=== PATIENT | female | born 1940 | race Caucasian/White ===

== ENCOUNTER → 2018-02-01 | Outpatient (CLI) | payer OTHER ==
[~2018-02-01] MED LIST: ALEN70 PO; AMOCLA875 PO; ASPI81CH PO; BUPR75 PO; CIPR500 PO; DOCU100 PO; ESTRTP VAG; Enulose10 GM/15 M PO; GABA100 PO; HYDACE5 PO; HYDMOR2 PO; KRILL OIL500 MG PO; LISI5 PO; LORA.5 PO; METO10 PO; Milk Of Ma800 MG/5 M PO; Miralax17 GM PO; OXYACE5T PO; Omeprazole20 M1 PO; PERIDEX15 ML MM; PHENA100 PO; PRAV20 PO; SOLI5 PO; SPIRIVA RESPIMAT4 G1 IH; TRAZ100 PO; VITAMIN D5000 UNI1 PO; Zanaflex4 MG PO; Zofran Odt4 MG SL
== END ==
LOC: LAB SHORT 12:35 → LAB EV 12:35
DX: N39.0 Urinary tract infection, site not specified (principal)
CPT/HCPCS: 87077; 87086; 87186

== ENCOUNTER 2018-02-14 13:54 | Inpatient (IN) | payer OTHER ==
[~2018-02-14] VITALS: Ht 162.6 cm; Wt 58.7 kg
[~2018-02-14 13:54] MED LIST changes: -GABA300 PO; -HYDCHL12.5 PO; -HYDR1TAB94 PO; -LIDO700A20 TOP; -TRIM100 PO
[2018-02-14] MEDS ORDERED: HYDCHL12.5 PO ×2 (15:21)
[2018-02-14] MEDS ORDERED: TRIM100 PO (15:23)
[2018-02-15 05:25] LABS: BASOPHILS ABSOLUTE AUTO 0.02 K/mm3 (0.00-0.23); BASOPHILS PERCENT AUTO 0 % (0-2); EOSINOPHILS ABSOLUTE AUTO 0.61 K/mm3 (0.00-0.68); EOSINOPHILS PERCENT AUTO 6 % (0-6); Hematocrit 39.1 % (33.0-51.0); Hemoglobin 12.8 g/dL (11.5-16.0); IMMATURE GRAN ABSOLUTE AUTO 0.04 K/mm3 (0.00-0.10); IMMATURE GRAN PERCENT AUTO 0 % (0-1); LYMPHOCYTES ABSOLUTE AUTO 0.99 K/mm3 (0.84-5.20); LYMPHOCYTES PERCENT AUTO 10 % (21-46); MONOCYTES ABSOLUTE AUTO 0.59 K/mm3 (0.16-1.47); MONOCYTES PERCENT AUTO 6 % (4-13); Mean Corpuscular HGB 28.2 pg (26.0-34.0); Mean Corpuscular HGB Conc 32.7 g/dL (31.5-36.5); Mean Corpuscular Volume 86 fL (80-100); Mean Platelet Volume 10.1 fL (9.1-12.4); NEUTROPHILS ABSOLUTE AUTO 7.96 K/mm3 (1.96-9.15); NEUTROPHILS PERCENT AUTO 78 % (41-73); Platelet Count 337 K/mm3 (150-400); RDW Coefficient Variation 12.8 % (11.7-14.2); RDW Standard Deviation 40.2 fL (35.1-46.3); Red Blood Cell Count 4.54 M/mm3 (3.80-5.20); White Blood Cell Count 10.21 K/mm3 (4.00-11.30)
[2018-02-15 05:52] LABS: Alanine Aminotransfer (ALT/SGP 10 U/L (12-78); Albumin, Blood 2.4 g/dL (3.4-5.0); Albumin/Globulin Ratio 0.6 (0.8-1.8); Alk Phos 107 U/L (50-136); Anion Gap 7 mmol/L (6-16); Aspartate Aminotrans (AST/SGOT 8 U/L (12-37); Bilirubin, Total 0.4 mg/dL (0.1-1.0); Blood Urea Nitrogen 14 mg/dL (8-24); Bun/Creatinine Ratio 20.2 (12.0-20.0); CO2, Blood 28 mmol/L (21-32); Calcium, Blood 8.1 mg/dL (8.5-10.1); Chloride, Blood 108 mmol/L (98-108); Creatinine, Blood 0.69 mg/dL (0.40-1.00); Globulin, Blood 4.1 g/dL (2.2-4.0); Glomerular Filtration Rate >60 (60-); Glucose, Blood 104 mg/dL (70-99); Potassium, Blood 3.7 mmol/L (3.5-5.5); Sodium, Blood 143 mmol/L (136-145); Total Protein, Blood 6.5 g/dL (6.4-8.2)
[2018-02-20] MEDS ORDERED: GABA300 PO ×2 (11:01)
[2018-02-20] MEDS ORDERED: HYDR1TAB94 PO ×2 (11:02)
[2018-02-20] MEDS ORDERED: LIDO700A20 TOP ×2 (11:03)
== END 2018-02-20 15:24 | disposition home or self-care (01) | DRG 872 ==
LOC: ER 13:54 → MEDS 16:16 → ENPENDDIS 02-20 10:19 → MEDS 02-20 15:24
PROVIDERS: Student in an Organized Health Care Education/Training Program
DX: A41.9 Sepsis, unspecified organism (principal); N39.0 Urinary tract infection, site not specified; M84.48XA Pathological fracture, other site, initial encounter for fracture; M81.0 Age-related osteoporosis without current pathological fracture; R65.20 Severe sepsis without septic shock; R21 Rash and other nonspecific skin eruption; M51.16 Intervertebral disc disorders with radiculopathy, lumbar region; M48.061 Spinal stenosis, lumbar region without neurogenic claudication; I10 Essential (primary) hypertension; J44.9 Chronic obstructive pulmonary disease, unspecified; G89.29 Other chronic pain; R32 Unspecified urinary incontinence; F17.210 Nicotine dependence, cigarettes, uncomplicated; Z79.82 Long term (current) use of aspirin; Z79.899 Other long term (current) drug therapy; W18.39XA Other fall on same level, initial encounter; Y92.230 Patient room in hospital as the place of occurrence of the external cause
CPT/HCPCS: 36415; 72148; 80053; 83605; 85025; 87040; 87086; 94640; 94760; 96361; 96374; 97110; 97116; 97162; 97166; 97530; 97535; 99285-25; G8978; G8979; G8987; G8988; J0696; J1650; J2405; J3010; J7030

== ENCOUNTER → 2018-02-14 | Outpatient (CLI) | payer OTHER ==
[~2018-02-14] MED LIST changes: +GABA300 PO; +HYDCHL12.5 PO; +HYDR1TAB94 PO; +LIDO700A20 TOP; +TRIM100 PO
[2018-02-14 13:11] LABS: BASOPHILS ABSOLUTE AUTO 0.03 K/mm3 (0.00-0.23); BASOPHILS PERCENT AUTO 0 % (0-2); EOSINOPHILS ABSOLUTE AUTO 0.37 K/mm3 (0.00-0.68); EOSINOPHILS PERCENT AUTO 2 % (0-6); Hematocrit 46.6 % (33.0-51.0); Hemoglobin 15.3 g/dL (11.5-16.0); IMMATURE GRAN ABSOLUTE AUTO 0.08 K/mm3 (0.00-0.10); IMMATURE GRAN PERCENT AUTO 1 % (0-1); LYMPHOCYTES ABSOLUTE AUTO 0.42 K/mm3 (0.84-5.20); LYMPHOCYTES PERCENT AUTO 3 % (21-46); MONOCYTES ABSOLUTE AUTO 0.44 K/mm3 (0.16-1.47); MONOCYTES PERCENT AUTO 3 % (4-13); Mean Corpuscular HGB 28.5 pg (26.0-34.0); Mean Corpuscular HGB Conc 32.8 g/dL (31.5-36.5); Mean Corpuscular Volume 87 fL (80-100); Mean Platelet Volume 9.6 fL (9.1-12.4); NEUTROPHILS ABSOLUTE AUTO 14.83 K/mm3 (1.96-9.15); NEUTROPHILS PERCENT AUTO 92 % (41-73); Platelet Count 416 K/mm3 (150-400); RDW Coefficient Variation 12.9 % (11.7-14.2); RDW Standard Deviation 40.4 fL (35.1-46.3); Red Blood Cell Count 5.37 M/mm3 (3.80-5.20); White Blood Cell Count 16.17 K/mm3 (4.00-11.30)
[2018-02-14 13:27] LABS: Alanine Aminotransfer (ALT/SGP 17 U/L (12-78); Albumin, Blood 3.4 g/dL (3.4-5.0); Albumin/Globulin Ratio 0.6 (0.8-1.8); Alk Phos 162 U/L (40-126); Anion Gap 8 mmol/L (6-16); Aspartate Aminotrans (AST/SGOT 17 U/L (12-37); Bilirubin, Total 0.5 mg/dL (0.1-1.0); Blood Urea Nitrogen 12 mg/dL (8-24); Bun/Creatinine Ratio 13.6 (12.0-20.0); CO2, Blood 30 mmol/L (21-32); Calcium, Blood 9.4 mg/dL (8.5-10.1); Chloride, Blood 97 mmol/L (98-108); Creatinine, Blood 0.88 mg/dL (0.40-1.00); Globulin, Blood 5.5 g/dL (2.2-4.0); Glomerular Filtration Rate >60 (60-); Glucose, Blood 169 mg/dL (70-99); Potassium, Blood 3.7 mmol/L (3.5-5.5); Sodium, Blood 135 mmol/L (136-145); Total Protein, Blood 8.9 g/dL (6.4-8.2)
== END | disposition home or self-care (01) ==
LOC: LAB EV 12:55 → LAB SHORT 12:55
PROVIDERS: Physician Assistant
DX: R21 Rash and other nonspecific skin eruption (principal)
CPT/HCPCS: 80053; 83605; 85025; 87040

== ENCOUNTER 2018-08-11 08:31 | Inpatient (IN) | payer OTHER ==
[~2018-08-11] VITALS: Ht 157.5 cm; Wt 55.6 kg
[~2018-08-11 08:31] MED LIST changes: +GABA300 PO; +HYDCHL12.5 PO; +HYDR1TAB94 PO; +LIDO700A20 TOP; +TRIM100 PO
[2018-08-11] MEDS ORDERED: OXYC5 PO (10:20)
[2018-08-11 11:55] LABS: BASOPHILS ABSOLUTE AUTO 0.05 K/mm3 (0.00-0.23); BASOPHILS PERCENT AUTO 1 % (0-2); EOSINOPHILS ABSOLUTE AUTO 0.11 K/mm3 (0.00-0.68); EOSINOPHILS PERCENT AUTO 1 % (0-6); Hematocrit 37.9 % (33.0-51.0); Hemoglobin 12.6 g/dL (11.5-16.0); IMMATURE GRAN ABSOLUTE AUTO 0.03 K/mm3 (0.00-0.10); IMMATURE GRAN PERCENT AUTO 0 % (0-1); LYMPHOCYTES ABSOLUTE AUTO 2.18 K/mm3 (0.84-5.20); LYMPHOCYTES PERCENT AUTO 21 % (21-46); MONOCYTES ABSOLUTE AUTO 0.91 K/mm3 (0.16-1.47); MONOCYTES PERCENT AUTO 9 % (4-13); Mean Corpuscular HGB 29.6 pg (26.0-34.0); Mean Corpuscular HGB Conc 33.2 g/dL (31.5-36.5); Mean Corpuscular Volume 89 fL (80-100); Mean Platelet Volume 9.3 fL (9.1-12.4); NEUTROPHILS ABSOLUTE AUTO 6.93 K/mm3 (1.96-9.15); NEUTROPHILS PERCENT AUTO 68 % (41-73); Platelet Count 418 K/mm3 (150-400); RDW Coefficient Variation 12.5 % (11.7-14.2); Red Blood Cell Count 4.26 M/mm3 (3.80-5.20); White Blood Cell Count 10.21 K/mm3 (4.00-11.30)
[2018-08-11 12:05] LABS: Source, Urine Clean Catch
[2018-08-11 12:08] LABS: Bilirubin, Urine Neg (Neg); Blood, Urine 3+ (Neg); Glucose Qualitative, Urine Neg (Neg); Ketones, Urine Neg (Neg); Leukocyte Esterase, Urine Neg (Neg); Nitrite, Urine Neg (Neg); Protein, Urine 1+ (Neg); Urobilinogen, Urine NORM (Normal); pH, Urine 6.5 (5.0-8.0)
[2018-08-11 12:11] LABS: Appearance, Urine Clear (Clear); Color, Urine Yellow (P-Yellow)
[2018-08-11 12:13] LABS: Alanine Aminotransfer (ALT/SGP 37 U/L (12-78); Albumin, Blood 3.1 g/dL (3.4-5.0); Albumin/Globulin Ratio 0.7 (0.8-1.8); Alk Phos 85 U/L (50-136); Anion Gap 9 mmol/L (6-16); Aspartate Aminotrans (AST/SGOT 15 U/L (12-37); Bilirubin, Total 0.5 mg/dL (0.1-1.0); Blood Urea Nitrogen 14 mg/dL (8-24); Bun/Creatinine Ratio 23.9 (12.0-20.0); CO2, Blood 25 mmol/L (21-32); Calcium, Blood 8.4 mg/dL (8.5-10.1); Chloride, Blood 105 mmol/L (98-108); Creatinine, Blood 0.59 mg/dL (0.40-1.00); Globulin, Blood 4.4 g/dL (2.2-4.0); Glomerular Filtration Rate >60 (60-); Glucose, Blood 102 mg/dL (70-99); Potassium, Blood 3.2 mmol/L (3.5-5.5); Sodium, Blood 139 mmol/L (136-145); Total Protein, Blood 7.5 g/dL (6.4-8.2)
[2018-08-11 12:14] LABS: Bacteria Not Seen /hpf
[2018-08-11 12:15] LABS: Calcium Oxalate Crystals Few /hpf; White Blood Cells, Urine Rare /hpf (0-5)
[2018-08-11 12:16] LABS: Squamous Epithelial Cells Rare /hpf (Few)
--- NOTE | 2018-08-11 16:07 | NUR ---
DR ROBERT HERE RECENTLY REPORTS TALKING WITH DR MÉNDEZ, REPORTS TO GIVE ABX. REPORTS PT MAY EAT AND TO HAVE PT NPO AFTER MIDNIGHT. PT R FOOT SLIGHTLY PINKER THAN LEFT. PT DENIES CP/SOB, NAUSEA. REPORTS N/T NORMAL FOR PT. PT REPORTS HX OF MURMUR. BT+X4. REPORTS VOIDING WITHOUT DIFF. PT A/O. PPX4. PT REPORTS RECENT BACK SURGERY. OWEN INTACT. PT REQ TO HAVE DRESSING CHANGED TODAY.
--- NOTE | 2018-08-11 18:24 | NUR ---
DRESSING RECENTLY CHANGED TO LOWER BACK.
[2018-08-12 05:35] LABS: BASOPHILS ABSOLUTE AUTO 0.04 K/mm3 (0.00-0.23); BASOPHILS PERCENT AUTO 1 % (0-2); EOSINOPHILS ABSOLUTE AUTO 0.18 K/mm3 (0.00-0.68); EOSINOPHILS PERCENT AUTO 3 % (0-6); Hematocrit 34.2 % (33.0-51.0); IMMATURE GRAN ABSOLUTE AUTO 0.02 K/mm3 (0.00-0.10); IMMATURE GRAN PERCENT AUTO 0 % (0-1); LYMPHOCYTES ABSOLUTE AUTO 1.74 K/mm3 (0.84-5.20); LYMPHOCYTES PERCENT AUTO 28 % (21-46); MONOCYTES ABSOLUTE AUTO 0.78 K/mm3 (0.16-1.47); MONOCYTES PERCENT AUTO 13 % (4-13); Mean Corpuscular HGB 29.2 pg (26.0-34.0); Mean Corpuscular HGB Conc 32.2 g/dL (31.5-36.5); Mean Corpuscular Volume 91 fL (80-100); Mean Platelet Volume 9.3 fL (9.1-12.4); NEUTROPHILS PERCENT AUTO 56 % (41-73); Platelet Count 366 K/mm3 (150-400); RDW Coefficient Variation 12.8 % (11.7-14.2); RDW Standard Deviation 42.3 fL (35.1-46.3); Red Blood Cell Count 3.77 M/mm3 (3.80-5.20); White Blood Cell Count 6.26 K/mm3 (4.00-11.30)
[2018-08-12 05:48] LABS: International Normalized Ratio 0.96; Prothrombin Time Results 9.9 Sec (9.7-11.5)
[2018-08-12 06:02] LABS: Alanine Aminotransfer (ALT/SGP 31 U/L (12-78); Albumin, Blood 2.4 g/dL (3.4-5.0); Albumin/Globulin Ratio 0.6 (0.8-1.8); Alk Phos 77 U/L (50-136); Anion Gap 5 mmol/L (6-16); Aspartate Aminotrans (AST/SGOT 16 U/L (12-37); Bilirubin, Total 0.7 mg/dL (0.1-1.0); Blood Urea Nitrogen 15 mg/dL (8-24); Bun/Creatinine Ratio 23.5 (12.0-20.0); CO2, Blood 28 mmol/L (21-32); Calcium, Blood 8.3 mg/dL (8.5-10.1); Chloride, Blood 109 mmol/L (98-108); Creatinine, Blood 0.64 mg/dL (0.40-1.00); Globulin, Blood 3.8 g/dL (2.2-4.0); Glomerular Filtration Rate >60 (60-); Glucose, Blood 115 mg/dL (70-99); Potassium, Blood 3.9 mmol/L (3.5-5.5); Sodium, Blood 142 mmol/L (136-145); Total Protein, Blood 6.2 g/dL (6.4-8.2)
--- NOTE | 2018-08-12 06:30 | NUR ---
SHIFT SUMMARY: PT HAS DONE WELL THIS SHIFT. STATES PAIN IS TOLERABLE AND REFUSES PAIN MEDICATION. ONE SBA TO BATHROOM. PT NPO FOR PLANNED I&D THIS MORNING. FLUIDS AND ABX INFUSING PER EMAR. NO CONCERNS AT THIS TIME. CALL LIGHT IN REACH.
--- NOTE | 2018-08-12 16:17 | NUR ---
SHIFT SUMMARY PT HAS DONE WELL THIS SHIFT. MEDICATED FOR PAIN ONCE WITH 5MG ROXICODONE FOR LBP AT SURGICAL SITE FROM RECENT BACK SURGERY. IV ABX PER EMAR. TOLERATING REGULAR DIET WITH NO N/V. SBA TO BATHROOM-DENIES WEAKNESS OR DIZZINESS.
--- NOTE | 2018-08-13 04:44 | NUR ---
SHIFT SUMMARY: PT HAS DONE WELL THIS SHIFT. NO ACUTE CHANGES. DENIES PAIN AND REFUSES 2100 GABAPENTIN. REPORTS NO BM FOR THE PAST 9 DAYS. GIVEN MOM, COLACE AND RECTAL SUPPOSITORY. REPORTS SML HARD BM HOUR AFTER SUPPOSITORY. PASSING GAS AND VOIDING WELL. DECREASE IN SWELLING ON R ANKLE. PLAN IS FOR PT TO DISCHARGE TODAY.
[2018-08-13 06:48] LABS: BASOPHILS ABSOLUTE AUTO 0.05 K/mm3 (0.00-0.23); BASOPHILS PERCENT AUTO 1 % (0-2); EOSINOPHILS ABSOLUTE AUTO 0.26 K/mm3 (0.00-0.68); EOSINOPHILS PERCENT AUTO 4 % (0-6); IMMATURE GRAN ABSOLUTE AUTO 0.02 K/mm3 (0.00-0.10); IMMATURE GRAN PERCENT AUTO 0 % (0-1); LYMPHOCYTES ABSOLUTE AUTO 2.09 K/mm3 (0.84-5.20); LYMPHOCYTES PERCENT AUTO 31 % (21-46); MONOCYTES ABSOLUTE AUTO 0.72 K/mm3 (0.16-1.47); MONOCYTES PERCENT AUTO 11 % (4-13); Mean Corpuscular HGB 29.1 pg (26.0-34.0); Mean Corpuscular HGB Conc 32.4 g/dL (31.5-36.5); Mean Corpuscular Volume 90 fL (80-100); Mean Platelet Volume 9.5 fL (9.1-12.4); NEUTROPHILS ABSOLUTE AUTO 3.57 K/mm3 (1.96-9.15); NEUTROPHILS PERCENT AUTO 53 % (41-73); Platelet Count 383 K/mm3 (150-400); RDW Coefficient Variation 12.7 % (11.7-14.2); RDW Standard Deviation 41.9 fL (35.1-46.3); Red Blood Cell Count 3.78 M/mm3 (3.80-5.20); White Blood Cell Count 6.71 K/mm3 (4.00-11.30)
[2018-08-13 07:04] LABS: Anion Gap 4 mmol/L (6-16); Blood Urea Nitrogen 12 mg/dL (8-24); Bun/Creatinine Ratio 19.6 (12.0-20.0); CO2, Blood 25 mmol/L (21-32); Calcium, Blood 8.1 mg/dL (8.5-10.1); Chloride, Blood 112 mmol/L (98-108); Creatinine, Blood 0.61 mg/dL (0.40-1.00); Glomerular Filtration Rate >60 (60-); Glucose, Blood 107 mg/dL (70-99); Potassium, Blood 4.3 mmol/L (3.5-5.5); Sodium, Blood 141 mmol/L (136-145)
--- NOTE | 2018-08-13 07:05 | NUR ---
REPORT FROM CLIENT RELATIONSHIP MANAGER. ASSUMED PT CARE.
--- NOTE | 2018-08-13 08:48 | NUR ---
PT MEDICATED PER EMAR. PT CONCERNED ABOUT HOW OFTEN SHE IS GOING TO THE BATHROOM. STATES HER ANKLE SEEMS SWOLLEN AND TIGHT TODAY. SHES CONCERNED THAT SHE ISNT READY TO GO HOME.
--- NOTE | 2018-08-13 10:19 | NUR ---
pt ambulating in [place] with use of walker. amb w/o diff. pt states "i need to walk"
--- NOTE | 2018-08-13 12:00 | NUR ---
IV ABX STARTED. PT DENIES NEEDS AT THIS TIME, ASKS IF HER FLUIDS CAN STAY UNHOOKED. WILL DISCUSS THIS PT.
--- NOTE | 2018-08-13 12:25 | NUR ---
report to [place] nino for lunch.
--- NOTE | 2018-08-13 13:10 | NUR ---
resumed pt care.
--- NOTE | 2018-08-13 14:26 | NUR ---
DR BELCHER TO ROOM FOR EVAL AND UPDATE. PLAN TO OBTAIN POST VOIDE BLADDER SCAN AND IF GREATER THAN [address] BELCHER WANTS TO CONSULT WITH DR MCKEON WHO PERFORMED PTS BACK SURGERY TO SEE IF OWEN CAN BE REMOVED. PLAN TO DC TOMORROW.
--- NOTE | 2018-08-13 14:35 | NUR ---
THIS RN CALLED DR SANCHEZ OFFICE AND LEFT MESSAGE WITH STAFF. PROVIDER TO CALL BACK.
--- NOTE | 2018-08-13 15:25 | NUR ---
BLADDER SCAN DONE AFTER URINATING, NONE NOTED.
[2018-08-13 15:29] LABS: Vancomycin, Trough 4.1 ug/mL (5.0-10.0)
--- NOTE | 2018-08-13 15:32 | NUR ---
PT MEDICATED WITH GABAPENTIN PER ORDERS. AWAITING VANC LEVEL FOR VANC INFUSION. 7 OWEN REMOVED FROM INCISION TO BACK. NO S/S INFECTION. AREA BLED A LITTLE. DRESSING PLACED.
[2018-08-14 05:06] LABS: BASOPHILS ABSOLUTE AUTO 0.05 K/mm3 (0.00-0.23); BASOPHILS PERCENT AUTO 1 % (0-2); EOSINOPHILS ABSOLUTE AUTO 0.29 K/mm3 (0.00-0.68); EOSINOPHILS PERCENT AUTO 5 % (0-6); Hemoglobin 11.3 g/dL (11.5-16.0); IMMATURE GRAN ABSOLUTE AUTO 0.02 K/mm3 (0.00-0.10); IMMATURE GRAN PERCENT AUTO 0 % (0-1); LYMPHOCYTES ABSOLUTE AUTO 1.98 K/mm3 (0.84-5.20); LYMPHOCYTES PERCENT AUTO 31 % (21-46); MONOCYTES ABSOLUTE AUTO 0.63 K/mm3 (0.16-1.47); MONOCYTES PERCENT AUTO 10 % (4-13); Mean Corpuscular HGB Conc 32.3 g/dL (31.5-36.5); Mean Corpuscular Volume 90 fL (80-100); Mean Platelet Volume 9.5 fL (9.1-12.4); NEUTROPHILS ABSOLUTE AUTO 3.44 K/mm3 (1.96-9.15); NEUTROPHILS PERCENT AUTO 54 % (41-73); Platelet Count 432 K/mm3 (150-400); RDW Coefficient Variation 12.7 % (11.7-14.2); RDW Standard Deviation 42.2 fL (35.1-46.3); White Blood Cell Count 6.41 K/mm3 (4.00-11.30)
--- NOTE | 2018-08-14 05:07 | NUR ---
PT HAD NO ACUTE CHANGES T/O NIGHT; VSS. PAIN MGD PER EMAR W/REP RELIEF. NO SIG CHANGE IN R ANKLE SWELLING. PT TX SELF TO BSC W/O DIFFICULTY, DOES REP INC IN PAIN W/WEIGHT BEARING. PT REP LESS URINARY FREQUENCY, IS VOIDING CLEAR YELLOW URINE. PT FER REG PO, NO C/O N/V. IVF CONT PER ORDERS. PT USING CALL LIGHT FOR ASSISTANCE, WILL CONT TO MONITOR UNTIL REP GIVEN TO ONCOMIG RN.
[2018-08-14 05:36] LABS: Anion Gap 5 mmol/L (6-16); Blood Urea Nitrogen 15 mg/dL (8-24); Bun/Creatinine Ratio 19.3 (12.0-20.0); C-REACTIVE PROTEIN, EXT RANGE 0.881 mg/dL (0.000-0.300); CO2, Blood 28 mmol/L (21-32); Calcium, Blood 8.4 mg/dL (8.5-10.1); Chloride, Blood 108 mmol/L (98-108); Creatinine, Blood 0.78 mg/dL (0.40-1.00); Glomerular Filtration Rate >60 (60-); Glucose, Blood 106 mg/dL (70-99); Potassium, Blood 4.3 mmol/L (3.5-5.5); Sodium, Blood 141 mmol/L (136-145)
[2018-08-14] MEDS ORDERED: GABA300 PO (14:54)
[2018-08-14] MEDS ORDERED: HYDCHL25 PO (14:54)
[2018-08-14] MEDS ORDERED: GAVILAX17 GM PO (14:55)
[2018-08-14] MEDS ORDERED: PRAV20 PO (14:55)
[2018-08-14] MEDS ORDERED: TIOT18 INH (14:56)
[2018-08-14] MEDS ORDERED: TRAZ100 PO (14:57)
[2018-08-14] MEDS ORDERED: DOCU100 PO (14:59)
[2018-08-14] MEDS ORDERED: CEPH500 PO (15:01)
--- NOTE | 2018-08-14 15:35 | NUR ---
PT IN SHOWER.
[2018-08-14 15:47] LABS: Vancomycin, Trough 10.2 ug/mL (5.0-10.0)
--- NOTE | 2018-08-14 18:09 | NUR ---
DISCHARGED REVIEWED DC PAPERWORK W/PT. PT VERBALIZED UNDERSTANDING. DC'D IVS, CATHETER INTACT. PT ATE DINNER THEN LEFT UNIT IN WC ACCOMPANIED BY RIDE W/POSSESSIONS IN HAND.
== END 2018-08-14 18:07 | disposition home or self-care (01) | DRG 603 ==
LOC: ER 08:31 → SURS 14:07 → MEDS 14:07 → SURS 15:33
PROVIDERS: Family Medicine; Pharmacist; Physician Assistant; ADMIT Family Medicine
DX: L03.115 Cellulitis of right lower limb (principal); M54.16 Radiculopathy, lumbar region; M48.00 Spinal stenosis, site unspecified; M48.061 Spinal stenosis, lumbar region without neurogenic claudication; R35.0 Frequency of micturition; I10 Essential (primary) hypertension; J44.9 Chronic obstructive pulmonary disease, unspecified
CPT/HCPCS: 20605; 36415; 73610; 80048; 80053; 80202; 81001; 83605; 84550; 85025; 85610; 85651; 85730; 86140; 87040; 87070; 87075; 87205; 93971; 94760; 96374; 99285-25; J2543; J3010; J3370; J7030

== ENCOUNTER → 2019-06-29 | Outpatient (CLI) | payer OTHER ==
[~2019-06-29] MED LIST changes: +CEPH500 PO; +GAVILAX17 GM PO; +HYDCHL25 PO; +OXYC5 PO; +TIOT18 INH
[2019-06-29 14:29] LABS: Source, Urine Clean Catch
[2019-06-29 15:20] LABS: Appearance, Urine Cloudy (Clear); Bilirubin, Urine Neg (Neg); Blood, Urine 1+ (Neg); Color, Urine Yellow (P-Yellow); Glucose Qualitative, Urine Neg (Normal); Ketones, Urine Neg (Neg); Leukocyte Esterase, Urine 2+ (Neg); Nitrite, Urine Pos (Neg); Protein, Urine 1+ (Neg); Urobilinogen, Urine NORM (Normal); White Blood Cells, Urine TNTC /hpf (0-5)
[2019-06-29 15:21] LABS: Bacteria Many /hpf; Squamous Epithelial Cells Few /hpf (Few); Triple Phosphate Crystals Few /hpf
== END | disposition home or self-care (01) ==
LOC: LAB EV 14:27 → LAB SHORT 14:27
PROVIDERS: Nurse Practitioner Family
DX: R30.0 Dysuria (principal)
CPT/HCPCS: 81001; 87077; 87086; 87186

== ENCOUNTER → 2019-08-02 | Outpatient (CLI) | payer OTHER | END | disposition home or self-care (01) | LOC: LAB EV 15:40 → LAB SHORT 15:40 | DX: N76.0 Acute vaginitis (principal); R30.0 Dysuria | CPT/HCPCS: 87070; 87086; 87205 ==

== ENCOUNTER 2019-09-12 19:08 | Emergency (ER) | payer OTHER ==
[~2019-09-12] VITALS: Ht 162.6 cm; Wt 52.2 kg
== END 2019-09-12 21:05 | disposition home or self-care (01) ==
LOC: ER 19:08
DX: T74.61XA Adult forced labor exploitation, confirmed, initial encounter (principal); S00.12XA Contusion of left eyelid and periocular area, initial encounter; R91.1 Solitary pulmonary nodule; Z91.030 Bee allergy status; Z79.899 Other long term (current) drug therapy; F17.210 Nicotine dependence, cigarettes, uncomplicated; I10 Essential (primary) hypertension; J44.9 Chronic obstructive pulmonary disease, unspecified; M81.0 Age-related osteoporosis without current pathological fracture; Y04.0XXA Assault by unarmed brawl or fight, initial encounter
CPT/HCPCS: 70450; 72125; 73060; 99284-25

== ENCOUNTER → 2019-10-03 | Outpatient (CLI) | payer OTHER | END | disposition home or self-care (01) | LOC: LAB SHORT 12:05 → LAB EV 12:05 | DX: R30.0 Dysuria (principal) | CPT/HCPCS: 87077; 87086; 87186 ==

== ENCOUNTER 2019-11-22 17:38 | Emergency (ER) | payer OTHER ==
[~2019-11-22] VITALS: Ht 157.5 cm; Wt 49.9 kg
[2019-11-22] MEDS ORDERED: TRAZ50 PO (18:23)
[2019-11-22] MEDS ORDERED: OMEP20ER PO (18:24)
[2019-11-22] MEDS ORDERED: PRAVASTATIN SOD20 MG PO (18:25)
[2019-11-22] MEDS ORDERED: PRINIVIL10 MG PO (18:26)
[2019-11-22] MEDS ORDERED: HYDR1TAB94 PO (18:28)
== END 2019-11-22 19:03 | disposition home or self-care (01) ==
LOC: ER 17:38
DX: S46.812A Strain of other muscles, fascia and tendons at shoulder and upper arm level, left arm, initial encounter (principal); I10 Essential (primary) hypertension; J44.9 Chronic obstructive pulmonary disease, unspecified; F17.210 Nicotine dependence, cigarettes, uncomplicated; Z91.030 Bee allergy status; X58.XXXA Exposure to other specified factors, initial encounter; Y92.007 Garden or yard of unspecified non-institutional (private) residence as the place of occurrence of the external cause
CPT/HCPCS: 93005; 93010; 99283-25; A9270-GY

== ENCOUNTER 2020-10-02 11:16 | Emergency (ER) | payer OTHER ==
[~2020-10-02] VITALS: Ht 162.6 cm; Wt 49.0 kg
[~2020-10-02 11:16] MED LIST changes: +OMEP20ER PO; +PRAVASTATIN SOD20 MG PO; +PRINIVIL10 MG PO; +TRAZ50 PO
[2020-10-02 14:30] LABS: Base Excess Venous 2.6 mmol/L; Bicarbonate Venous 26.2 mmol/L (24.0-30.0); PCO2 Venous 45.1 mmHg (38-42); PO2 Venous 65.5 mmHg (38-42); pH Blood Venous 7.39 (7.34-7.37)
[2020-10-02 14:44] LABS: BASOPHILS ABSOLUTE AUTO 0.04 K/mm3 (0.00-0.23); BASOPHILS PERCENT AUTO 1 % (0-2); EOSINOPHILS ABSOLUTE AUTO 0.08 K/mm3 (0.00-0.68); EOSINOPHILS PERCENT AUTO 1 % (0-6); Hematocrit 36.3 % (33.0-51.0); Hemoglobin 11.6 g/dL (11.5-16.0); IMMATURE GRAN ABSOLUTE AUTO 0.02 K/mm3 (0.00-0.10); IMMATURE GRAN PERCENT AUTO 0 % (0-1); LYMPHOCYTES ABSOLUTE AUTO 1.55 K/mm3 (0.84-5.20); LYMPHOCYTES PERCENT AUTO 21 % (21-46); MONOCYTES ABSOLUTE AUTO 0.62 K/mm3 (0.16-1.47); MONOCYTES PERCENT AUTO 8 % (4-13); Mean Corpuscular HGB 27.8 pg (26.0-34.0); Mean Corpuscular Volume 87 fL (80-100); Mean Platelet Volume 9.5 fL (9.1-12.4); NEUTROPHILS ABSOLUTE AUTO 5.21 K/mm3 (1.96-9.15); NEUTROPHILS PERCENT AUTO 69 % (41-73); Platelet Count 509 K/mm3 (150-400); RDW Coefficient Variation 11.9 % (11.7-14.2); RDW Standard Deviation 38.2 fL (35.1-46.3); Red Blood Cell Count 4.18 M/mm3 (3.80-5.20); White Blood Cell Count 7.52 K/mm3 (4.00-11.30)
[2020-10-02 15:11] LABS: Alanine Aminotransfer (ALT/SGP 19 U/L (12-78); Albumin, Blood 2.7 g/dL (3.4-5.0); Albumin/Globulin Ratio 0.5 (0.8-1.8); Alk Phos 77 U/L (50-136); Anion Gap 4 mmol/L (6-16); Aspartate Aminotrans (AST/SGOT 15 U/L (12-37); Bilirubin, Total 0.4 mg/dL (0.1-1.0); Blood Urea Nitrogen 19 mg/dL (8-24); Bun/Creatinine Ratio 33.3 (12.0-20.0); CO2, Blood 29 mmol/L (21-32); CPK Creatine Kinase 41 U/L (26-193); Calcium, Blood 9.1 mg/dL (8.5-10.1); Chloride, Blood 104 mmol/L (98-108); Creatine Kinase MB Index 2.4 (0.0-4.0); Creatinine, Blood 0.57 mg/dL (0.40-1.00); Globulin, Blood 5.3 g/dL (2.2-4.0); Glomerular Filtration Rate >60 (60-); Glucose, Blood 84 mg/dL (70-99); Magnesium, Blood 1.8 mg/dL (1.6-2.4); Potassium, Blood 4.2 mmol/L (3.5-5.5); Sodium, Blood 137 mmol/L (136-145)
== END 2020-10-02 17:15 | disposition home or self-care (01) ==
LOC: ER 11:16
PROVIDERS: Emergency Medicine
DX: M79.10 Myalgia, unspecified site (principal); R53.1 Weakness; I10 Essential (primary) hypertension; J44.9 Chronic obstructive pulmonary disease, unspecified; F17.210 Nicotine dependence, cigarettes, uncomplicated; Z60.9 Problem related to social environment, unspecified; Z91.030 Bee allergy status; Z79.899 Other long term (current) drug therapy
CPT/HCPCS: 36415; 72070; 72100; 80053; 82550; 82553; 82803; 83735; 85025; 96374; 96375; 99284-25; J2405; J3010

== ENCOUNTER 2021-01-05 14:33 | Emergency (ER) | payer OTHER ==
[~2021-01-05] VITALS: Ht 167.6 cm; Wt 47.6 kg
== END 2021-01-05 14:50 | disposition home or self-care (01) ==
LOC: ER 14:33
DX: K59.00 Constipation, unspecified (principal); I10 Essential (primary) hypertension; J44.9 Chronic obstructive pulmonary disease, unspecified; F17.210 Nicotine dependence, cigarettes, uncomplicated; Z79.899 Other long term (current) drug therapy; Z91.030 Bee allergy status
CPT/HCPCS: 99283

== ENCOUNTER → 2024-02-27 | Outpatient (CLI) | payer MEDICARE ==
[~2024-02-27] MED LIST changes: +NEURONTIN40010 PO; +PRED20 PO; +Ventolin/Prove6.7 GM INH
== END | disposition home or self-care (01) ==
LOC: LAB SHORT 15:43 → LAB 15:43
DX: R35.0 Frequency of micturition (principal)
CPT/HCPCS: 87086

== ENCOUNTER 2024-04-29 18:59 | Emergency (ER) | payer MEDICARE ==
[~2024-04-29] VITALS: Ht 147.3 cm; Wt 74.8 kg
[2024-04-29 20:07] LABS: Source, Urine Clean Catch
[2024-04-29 20:12] LABS: Appearance, Urine Cloudy (Clear); Bilirubin, Urine Neg (Neg); Blood, Urine Neg (Neg); Color, Urine Yellow (P-Yellow); Glucose Qualitative, Urine Neg (Neg); Ketones, Urine Neg (Neg); Leukocyte Esterase, Urine 1+ (Neg); Nitrite, Urine Neg (Neg); Protein, Urine 2+ (Neg); Urobilinogen, Urine 2+ (Normal)
[2024-04-29 20:15] LABS: BASOPHILS ABSOLUTE AUTO 0.08 K/mm3 (0.00-0.23); BASOPHILS PERCENT AUTO 1 % (0-2); EOSINOPHILS ABSOLUTE AUTO 0.23 K/mm3 (0.00-0.68); EOSINOPHILS PERCENT AUTO 3 % (0-6); Hematocrit 40.3 % (33.0-51.0); Hemoglobin 13.4 g/dL (11.5-16.0); IMMATURE GRAN ABSOLUTE AUTO 0.01 K/mm3 (0.00-0.10); IMMATURE GRAN PERCENT AUTO 0 % (0-1); LYMPHOCYTES ABSOLUTE AUTO 2.14 K/mm3 (0.84-5.20); LYMPHOCYTES PERCENT AUTO 28 % (21-46); MONOCYTES ABSOLUTE AUTO 0.61 K/mm3 (0.16-1.47); MONOCYTES PERCENT AUTO 8 % (4-13); Mean Corpuscular HGB 27.4 pg (26.0-34.0); Mean Corpuscular HGB Conc 33.3 g/dL (31.5-36.5); Mean Corpuscular Volume 82 fL (80-100); Mean Platelet Volume 9.6 fL (9.1-12.4); NEUTROPHILS ABSOLUTE AUTO 4.59 K/mm3 (1.96-9.15); NEUTROPHILS PERCENT AUTO 60 % (41-73); Platelet Count 402 K/mm3 (150-400); RDW Coefficient Variation 14.6 % (11.7-14.2); RDW Standard Deviation 44.5 fL (35.1-46.3); Red Blood Cell Count 4.89 M/mm3 (3.80-5.20); White Blood Cell Count 7.66 K/mm3 (4.00-11.30)
[2024-04-29 20:35] LABS: U Amphetamine Screen DETECTED; U Barbituate Screen Not Detected; U Benzodiazapine Screen Not Detected; U Buprenorphine Screen Not Detected; U Cannabinoids Screen Not Detected; U Cocaine Screen Not Detected; U Methadone Screen Not Detected; U Methamphetamine Screen DETECTED; U Opiates Screen Not Detected; U Oxycodone Screen Not Detected; U Phencyclidine Screen Not Detected
[2024-04-29 20:42] LABS: Bacteria Many /hpf; Squamous Epithelial Cells Few /hpf (Few)
[2024-04-29 20:45] LABS: Albumin, Blood 3.4 g/dL (3.4-5.0); Albumin/Globulin Ratio 0.7 (0.8-1.8); Bilirubin, Total 0.3 mg/dL (0.1-1.0); Calcium, Blood 9.2 mg/dL (8.5-10.1); Creatinine, Blood 0.7 mg/dL (0.40-1.00); Globulin, Blood 4.7 g/dL (2.2-4.0); Potassium, Blood 4.1 mmol/L (3.5-5.5); Thyroid Stimulating Hormone 1.54 uIU/mL (0.360-4.800); Total Protein, Blood 8.1 g/dL (6.4-8.2)
[2024-04-29] MEDS ORDERED: NS 1,000 ML IV SCH (22:15)
[2024-04-30] MEDS ORDERED: Cephalexin Monohydrate 500 MG Cap PO ONE (00:45)
[2024-04-30] MEDS ORDERED: CEPH500 PO (06:10)
[2024-04-30 07:54] VITALS: BP 172/95
== END 2024-04-30 08:53 | disposition home or self-care (01) ==
LOC: ER 18:59
PROVIDERS: Emergency Medicine
DX: F15.10 Other stimulant abuse, uncomplicated (principal); N39.0 Urinary tract infection, site not specified; E86.0 Dehydration; I10 Essential (primary) hypertension; J44.9 Chronic obstructive pulmonary disease, unspecified; F17.200 Nicotine dependence, unspecified, uncomplicated; Z91.030 Bee allergy status; Z79.899 Other long term (current) drug therapy; Z79.52 Long term (current) use of systemic steroids
CPT/HCPCS: 36415; 70450; 80053; 81001; 84443; 85025; 87086; 93005; 93010; 96360; 99285-25; A9270; J7030

== ENCOUNTER 2025-01-04 09:17 | Observation (INO) | payer MEDICARE ==
[~2025-01-04] VITALS: Ht 162.6 cm; Wt 56.2 kg
[~2025-01-04 09:17] MED LIST changes: +ALBU8HFA2 INH; +ERYT1OIN BOTHEYES; +OCUFLOX510 BOTHEYES; -Ventolin/Prove6.7 GM INH
[2025-01-04] MEDS ORDERED: Lactated Ringer's 1,000 ML IV ONE ×2 (09:35→09:55)
[2025-01-04 10:04] LABS: BASOPHILS ABSOLUTE AUTO 0.04 K/mm3 (0.00-0.23); BASOPHILS PERCENT AUTO 0 % (0-2); EOSINOPHILS ABSOLUTE AUTO 0.18 K/mm3 (0.00-0.68); EOSINOPHILS PERCENT AUTO 2 % (0-6); Hematocrit 35.1 % (33.0-51.0); Hemoglobin 11.4 g/dL (11.5-16.0); IMMATURE GRAN ABSOLUTE AUTO 0.03 K/mm3 (0.00-0.10); IMMATURE GRAN PERCENT AUTO 0 % (0-1); LYMPHOCYTES ABSOLUTE AUTO 0.69 K/mm3 (0.84-5.20); LYMPHOCYTES PERCENT AUTO 8 % (21-46); MONOCYTES ABSOLUTE AUTO 0.44 K/mm3 (0.16-1.47); MONOCYTES PERCENT AUTO 5 % (4-13); Mean Corpuscular HGB 28.4 pg (26.0-34.0); Mean Corpuscular HGB Conc 32.5 g/dL (31.5-36.5); Mean Corpuscular Volume 87 fL (80-100); Mean Platelet Volume 9.7 fL (9.1-12.4); NEUTROPHILS ABSOLUTE AUTO 7.55 K/mm3 (1.96-9.15); NEUTROPHILS PERCENT AUTO 85 % (41-73); Platelet Count 348 K/mm3 (150-400); RDW Coefficient Variation 12.9 % (11.7-14.2); RDW Standard Deviation 41.3 fL (35.1-46.3); Red Blood Cell Count 4.02 M/mm3 (3.80-5.20); White Blood Cell Count 8.93 K/mm3 (4.00-11.30)
[2025-01-04 10:39] LABS: Albumin, Blood 1.8 g/dL (3.4-5.0); Albumin/Globulin Ratio 0.6 (0.8-1.8); Bilirubin, Total 0.2 mg/dL (0.1-1.0); Bun/Creatinine Ratio 34.5 (12.0-20.0); Calcium, Blood 5.5 mg/dL (8.5-10.1); Creatinine, Blood 0.44 mg/dL (0.40-1.00); Globulin, Blood 3.1 g/dL (2.2-4.0); Potassium, Blood 2.8 mmol/L (3.5-5.5); Total Protein, Blood 4.9 g/dL (6.4-8.2)
[2025-01-04] MEDS ORDERED: Potassium Chloride 40 MEQ in NS 250 ML IV ONE (11:50)
[2025-01-04] MEDS ORDERED: Potassium Chloride 20 MEQ TabCR PO ONE (11:50)
[2025-01-04 12:13] LABS: Magnesium, Blood 1.2 mg/dL (1.6-2.4); Phosphorus, Blood 1.6 mg/dL (2.5-4.9)
[2025-01-04] MEDS ORDERED: Ondansetron HCl 2 MG / ML 2ML Vial IV PRN (12:40)
[2025-01-04] MEDS ORDERED: Mag Sulfate 1 GM/D5% 100ML 100 ML IV STA (12:41)
[2025-01-04] MEDS ORDERED: NS 1,000 ML IV ONE (13:35)
[2025-01-04] MEDS ORDERED: Heparin Sodium,Porcine 5,000 UNIT/0.5 ML SDV SC SCH (14:00)
[2025-01-04] MEDS ORDERED: NS 1,000 ML IV SCH (14:45)
[2025-01-04 15:12] VITALS: BP 165/63
--- NOTE | 2025-01-04 16:06 | NUR ---
ADMISSION NOTE MS YANEZ WAS ADMITTED FROM THE ER AT 1500HRS. CAME UP VIA WHEELCHAIR AND SHE WAS ABLE TO STAND INDEPENDENTLY TO TRANSFER ONTO THE TOILET FOR DIARRHEA STOOL AND INTO BED. SHE IS ABLE TO ANSWER ORIENTATION QUESTIONS APPROPRIATELY, HAS RAMBLING CONVERSATION THAT HEADS OFF INTO FREQUENT "JOKING" ANSWERS OF QUESTIONS. SHE DENIED HAVING A GUARDIAN OR A CAREGIVER, SAID SHE MAKES ALL OF HER OWN DECISIONS. YADIEL ARRIVED AT BEDSIDE WHO SAID HE IS HER [employer]S CONSERVATION LABORER AND THAT SHE HAS A GUARDIAN. I AM AWAITING PAPERWORK FROM THE ER FOR HER MEDICATION LIST (FROM [facility]) WHICH IS BEING SEARCHED FOR. MS YANEZ WAS EDUCATED TELEHEALTH NURSE EDUCATOR SYSTEM AND FALL PRECAUTIONS. SHE ASSURED ME THAT SHE WOULD CALL BEFORE GETTING UP. BED ALARM SET THAT WENT OFF WHEN SHE FORGOT HOW TO USE THE CALL SYSTEM. PLACED ON TELEMETRY IN SINUS RHYTHM. TOE NAILS IN POOR CONDITION, RIGHT EYE HAS SOME DRIED SKIN THAT SHE SAID IS FROM A RECENT INFECTION, OTHERWISE SKIN LOOKS APPROPRIATE FOR HER AGE.
[2025-01-04 16:35] LABS: Campylobacter Sp Not Detected (NOT DETECT); Norovirus GI/GII Detected (NOT DETECT)
[2025-01-04 16:36] LABS: Adenovirus F 40/41 Not Detected (NOT DETECT); Astrovirus Not Detected (NOT DETECT); Cryptosporidium Not Detected (NOT DETECT); Cyclospora Cayetanensis Not Detected (NOT DETECT); E. Coli O157 Not Detected (NOT DETECT); Entamoeba Histolytica Not Detected (NOT DETECT); Enteroaggregative E. coli-EAEC Not Detected (NOT DETECT); Enteropathogenic E. coli-EPEC Not Detected (NOT DETECT); Enterotoxigenic E. coli-ETEC Not Detected (NOT DETECT); Giardia Lamblia Not Detected (NOT DETECT); Plesiomonas Shigelloides Not Detected (NOT DETECT); Rotavirus A Not Detected (NOT DETECT); Salmonella Sp Not Detected (NOT DETECT); Sapovirus Not Detected (NOT DETECT); Shiga Toxin-prod E. coli-STEC Not Detected (NOT DETECT); Shigella/Enteroin E. coli-EIEC Not Detected (NOT DETECT); Vibrio Cholerae Not Detected (NOT DETECT); Vibrio Sp Not Detected (NOT DETECT); Yersinia Enterocolitica Not Detected (NOT DETECT)
[2025-01-04] MEDS ORDERED: ALEN70 PO (16:51)
[2025-01-04] MEDS ORDERED: Prinivil10 MG PO (16:52)
[2025-01-04] MEDS ORDERED: NAPR500 PO (16:53)
[2025-01-04] MEDS ORDERED: NYSTATIN15 GM TOP (16:54)
[2025-01-04] MEDS ORDERED: MIRALAX17 GM PO (16:55)
[2025-01-04] MEDS ORDERED: MIRTAZAPINE7.5 M1 PO (16:56)
[2025-01-04] MEDS ORDERED: Acetaminophen650 M1 PO (16:57)
[2025-01-04] MEDS ORDERED: [UNRECOGNIZED DRUG - OTHER] TOP (16:59)
[2025-01-04] MEDS ORDERED: HYDPAM25 PO (17:00)
[2025-01-04] MEDS ORDERED: NICO2 PO (17:01)
[2025-01-04] MEDS ORDERED: TIZA4 PO (17:03)
--- NOTE | 2025-01-04 17:05 | NUR ---
UPDATE MED REC COMPLETED WITH RECORDS FROM [facility]. +NOROVIRUS PER LAB RESULTS. SHE CONTINUES ON ISOLATION.
[2025-01-04] MEDS ORDERED: Albuterol 2.5 MG/3 ML VIAL INH PRN (17:50)
[2025-01-04] MEDS ORDERED: CALCIUM GLUC IN NACL, ISO-OSM 50 ML IV ONE (17:55)
[2025-01-04 19:52] LABS: Magnesium, Blood 2.4 mg/dL (1.6-2.4); Potassium, Blood 4.5 mmol/L (3.5-5.5)
[2025-01-04 20:06] VITALS: BP 179/78
[2025-01-04] MEDS ORDERED: TraZODone HCl 100 MG Tab PO SCH (21:00)
[2025-01-04] MEDS ORDERED: Mirtazapine 15 MG SoluTab PO SCH (21:00)
[2025-01-04] MEDS ORDERED: Gabapentin 400 MG Cap PO SCH (21:00)
[2025-01-05 00:24] VITALS: BP 130/62
[2025-01-05 04:07] VITALS: BP 131/59
[2025-01-05] MEDS ORDERED: Omeprazole 20 MG CapCR PO SCH (06:00)
[2025-01-05 06:36] LABS: BASOPHILS ABSOLUTE AUTO 0.03 K/mm3 (0.00-0.23); BASOPHILS PERCENT AUTO 1 % (0-2); EOSINOPHILS ABSOLUTE AUTO 0.25 K/mm3 (0.00-0.68); EOSINOPHILS PERCENT AUTO 6 % (0-6); Hematocrit 33.4 % (33.0-51.0); Hemoglobin 10.9 g/dL (11.5-16.0); IMMATURE GRAN ABSOLUTE AUTO 0.01 K/mm3 (0.00-0.10); IMMATURE GRAN PERCENT AUTO 0 % (0-1); LYMPHOCYTES ABSOLUTE AUTO 1.24 K/mm3 (0.84-5.20); LYMPHOCYTES PERCENT AUTO 32 % (21-46); MONOCYTES ABSOLUTE AUTO 0.34 K/mm3 (0.16-1.47); MONOCYTES PERCENT AUTO 9 % (4-13); Mean Corpuscular HGB 28.5 pg (26.0-34.0); Mean Corpuscular HGB Conc 32.6 g/dL (31.5-36.5); Mean Corpuscular Volume 87 fL (80-100); Mean Platelet Volume 9.7 fL (9.1-12.4); NEUTROPHILS ABSOLUTE AUTO 2.06 K/mm3 (1.96-9.15); NEUTROPHILS PERCENT AUTO 52 % (41-73); Platelet Count 294 K/mm3 (150-400); RDW Coefficient Variation 13.2 % (11.7-14.2); RDW Standard Deviation 41.7 fL (35.1-46.3); Red Blood Cell Count 3.83 M/mm3 (3.80-5.20); White Blood Cell Count 3.93 K/mm3 (4.00-11.30)
[2025-01-05 06:55] LABS: Magnesium, Blood 2.1 mg/dL (1.6-2.4)
[2025-01-05 06:58] LABS: Bun/Creatinine Ratio 16.3 (12.0-20.0); Calcium, Blood 8.3 mg/dL (8.5-10.1); Creatinine, Blood 0.61 mg/dL (0.40-1.00); Phosphorus, Blood 2.4 mg/dL (2.5-4.9); Potassium, Blood 4.3 mmol/L (3.5-5.5)
[2025-01-05 07:51] VITALS: BP 156/75
[2025-01-05] MEDS ORDERED: Lisinopril 10 MG Tab PO SCH (09:00)
[2025-01-05] MEDS ORDERED: Sodium Phosphate 15 MM in Dextrose 5% 500 ML IV STA (10:46)
[2025-01-05] MEDS ORDERED: CALCIUM GLUC IN NACL, ISO-OSM 50 ML IV ONE (10:50)
[2025-01-05 11:23] VITALS: BP 150/69
[2025-01-05] MEDS ORDERED: Loperamide HCl 2 MG Cap PO PRN (13:50)
[2025-01-05] MEDS ORDERED: Erythromycin 0.5% Opth Oint 3.5 gm BOTHEYES SCH (14:00)
[2025-01-05] MEDS ORDERED: Ofloxacin 0.3% Opth Soln 5 ML BOTHEYES SCH (14:00)
--- NOTE | 2025-01-05 16:32 | NUR ---
SHIFT SUMMARY PATIENT HAVING EPISODES OF LIQUID STOOL THIS SHIFT, 2 SO FAR WHICH IS LESS THAN PREVIOUS SHIFT. NORMAN INTACT, DRAINING TO GRAVITY YELLOW URINE. ABLE TO USE BSC WITH 1 ASSIST. PHOS AND CALCIUM REPLACED THIS SHIFT, TOLERATED WELL. ADVANCED DIET TO REGULAR, NO N/V. NO TELE EVENTS. PATIENT A/OX4. USING CALL LIGHT APPROPRIATELY. ABLE TO MAKE NEEDS KNOWN. IMMODIUM STARTED WELL ABX EYE DROPS. PATIENT STATES R EYE IS RED AND ITCHY, APPEARS PINK AND CLEAN ON ASSESSMENT.
[2025-01-05 19:23] VITALS: BP 117/52
[2025-01-06 00:14] VITALS: BP 114/52
[2025-01-06 05:20] VITALS: BP 120/53
[2025-01-06 07:18] LABS: BASOPHILS ABSOLUTE AUTO 0.04 K/mm3 (0.00-0.23); BASOPHILS PERCENT AUTO 1 % (0-2); EOSINOPHILS ABSOLUTE AUTO 0.35 K/mm3 (0.00-0.68); EOSINOPHILS PERCENT AUTO 7 % (0-6); Hematocrit 35.4 % (33.0-51.0); Hemoglobin 11.4 g/dL (11.5-16.0); IMMATURE GRAN ABSOLUTE AUTO 0.01 K/mm3 (0.00-0.10); IMMATURE GRAN PERCENT AUTO 0 % (0-1); LYMPHOCYTES ABSOLUTE AUTO 1.83 K/mm3 (0.84-5.20); LYMPHOCYTES PERCENT AUTO 35 % (21-46); MONOCYTES ABSOLUTE AUTO 0.64 K/mm3 (0.16-1.47); MONOCYTES PERCENT AUTO 12 % (4-13); Mean Corpuscular HGB 28.6 pg (26.0-34.0); Mean Corpuscular HGB Conc 32.2 g/dL (31.5-36.5); Mean Corpuscular Volume 89 fL (80-100); Mean Platelet Volume 10.2 fL (9.1-12.4); NEUTROPHILS ABSOLUTE AUTO 2.43 K/mm3 (1.96-9.15); NEUTROPHILS PERCENT AUTO 46 % (41-73); Platelet Count 328 K/mm3 (150-400); RDW Standard Deviation 42.4 fL (35.1-46.3); Red Blood Cell Count 3.99 M/mm3 (3.80-5.20)
[2025-01-06 07:27] VITALS: BP 107/54
[2025-01-06 07:39] LABS: Bun/Creatinine Ratio 14.5 (12.0-20.0); Calcium, Blood 8.5 mg/dL (8.5-10.1); Creatinine, Blood 0.69 mg/dL (0.40-1.00); Potassium, Blood 3.9 mmol/L (3.5-5.5)
[2025-01-06 11:42] VITALS: BP 115/57
[2025-01-06 15:33] VITALS: BP 117/53
[2025-01-06 18:30] LABS: Bun/Creatinine Ratio 18.4 (12.0-20.0); Calcium, Blood 8.7 mg/dL (8.5-10.1); Creatinine, Blood 0.71 mg/dL (0.40-1.00); Magnesium, Blood 1.8 mg/dL (1.6-2.4); Potassium, Blood 3.9 mmol/L (3.5-5.5)
--- NOTE | 2025-01-06 19:54 | NUR ---
SHIFT SUMMARY CLIENT A&O X4 AT BEGINNING OF SHIFT, BUT STARTED TO SHOW SIGNS OF CONFUSION TOWARDS THE END OF THE SHIFT. TELE STRIP FROM 01/06 @ 0614 SHOWED SINUS RYTHM @ 68. RECIEVED CALL FROM LAY UP OPERATOR AT APPROX 1721 THAT CLIENT HAD EXPERIENCED A 7 SECOND CONVERSION TP AFIB RVR @ 160-[address]ING TO BASELINE. [address] LAGUNAS NOTIFIED. NORMAN REMAIN IN PLACE AND DRAINING CLEAR YELLOW UTINE. BED IN LOW POSITION AND CALL LIGHT IS WITHIN REACH.
[2025-01-06 21:21] VITALS: BP 117/53
[2025-01-07 00:17] VITALS: BP 121/60
--- NOTE | 2025-01-07 04:56 | NUR ---
SHIFT SUMMARY; PATIENT SLEPT IN LONG INTERVALS, NO BM'S TONIGHT. TELE SB @ 59. NO EVENTS REPORTED FROM TELE. REMAINS ON CONTACT ENTERIC PRECAUTIONS. ESTER PATENT,
[2025-01-07 04:58] VITALS: BP 101/47
[2025-01-07 05:22] LABS: Hematocrit 33.9 % (33.0-51.0); Mean Corpuscular HGB 28.6 pg (26.0-34.0); Mean Corpuscular HGB Conc 32.4 g/dL (31.5-36.5); Mean Corpuscular Volume 88 fL (80-100); Mean Platelet Volume 9.8 fL (9.1-12.4); Platelet Count 333 K/mm3 (150-400); RDW Standard Deviation 41.6 fL (35.1-46.3); Red Blood Cell Count 3.85 M/mm3 (3.80-5.20)
[2025-01-07 06:17] LABS: Albumin, Blood 2.7 g/dL (3.4-5.0); Albumin/Globulin Ratio 0.6 (0.8-1.8); Bilirubin, Total 0.1 mg/dL (0.1-1.0); Bun/Creatinine Ratio 17.5 (12.0-20.0); Calcium, Blood 8.2 mg/dL (8.5-10.1); Creatinine, Blood 0.91 mg/dL (0.40-1.00); Globulin, Blood 4.3 g/dL (2.2-4.0); Magnesium, Blood 1.8 mg/dL (1.6-2.4); Potassium, Blood 4.3 mmol/L (3.5-5.5)
[2025-01-07 06:24] LABS: BAND PERCENT MAN 1 % (0-8); BASOPHILS ABSOLUTE MAN 0.06 K/mm3 (0.00-0.23); BASOPHILS PERCENT MAN 1 % (0-2); EOSINOPHILS ABSOLUTE MAN 0.36 K/mm3 (0.00-0.68); EOSINOPHILS PERCENT MAN 6 % (0-6); LYMPHOCYTES ABSOLUTE MAN 2.31 K/mm3 (0.84-5.20); LYMPHOCYTES PERCENT MAN 38 % (21-46); MONOCYTES ABSOLUTE MAN 0.36 K/mm3 (0.16-1.47); MONOCYTES PERCENT MAN 6 % (4-13); NEUTROPHILS ABSOLUTE MAN 2.98 K/mm3 (1.96-9.15); SEG NEUTROPHILS PERCENT MAN 48 % (41-73); TOTAL CELLS COUNTED 100
[2025-01-07 07:30] VITALS: BP 113/43
[2025-01-07 11:26] VITALS: BP 124/48
[2025-01-07] MEDS ORDERED: OCUFLOX511 BOTHEYES (13:35)
--- NOTE | 2025-01-07 14:18 | NUR ---
DISCHARGE PT DISCHARGED BACK TO [facility]. NORMAN REMOVED PRIOR AND PT VOIDING WELL AFTER. PT PROVIDED SOME CLOTHES TO WEAR HOME FROM DC PLANNING. DC COORDINATOR FAXED ALL DC INFO TO [facility]. PT UNHAPPY ABOUT LEAVING BUT COOPERATIVE WITH GETTING INTO WHEELCHAIR TO LEAVE. PT TRANSPORTED BY YADIEL, WITH [facility]. PT UPSET THAT RN WOULLD NOT LET HER TAKE HOME SILERWARE THAT SHE HAD ROLLED UP IN A BLANKET IN HER BED. BELONGINGS SENT WITH PATIENT AND YADIEL.
== END 2025-01-07 13:38 | disposition home health service (06) ==
LOC: ER 09:17 → MEDS 09:18
PROVIDERS: Emergency Medicine; Family Medicine; Internal Medicine; ADMIT Internal Medicine
DX: A08.11 Acute gastroenteropathy due to Norwalk agent (principal); E83.51 Hypocalcemia; E83.39 Other disorders of phosphorus metabolism; E87.6 Hypokalemia; I10 Essential (primary) hypertension; J44.9 Chronic obstructive pulmonary disease, unspecified; F03.918 Unspecified dementia, unspecified severity, with other behavioral disturbance; F32.9 Major depressive disorder, single episode, unspecified; K21.9 Gastro-esophageal reflux disease without esophagitis; E78.5 Hyperlipidemia, unspecified; M35.3 Polymyalgia rheumatica; M06.9 Rheumatoid arthritis, unspecified; Z79.899 Other long term (current) drug therapy; Z88.8 Allergy status to other drugs, medicaments and biological substances; Z91.030 Bee allergy status; Z91.038 Other insect allergy status
CPT/HCPCS: 36415; 80048; 80053; 82330; 83690; 83735; 84100; 84132; 84484; 85025; 87507; 93005; 93010; 93246; 94760; 96365; 96366; 96372; 96375; 96376; 99285-25; A9270; G0378; J0612; J1644; J2405; J3475; J3480; J7030; J7050; J7060; J7120